=== PATIENT | female | born 2000 | race African-American/Black ===

== ENCOUNTER 2025-09-27 08:21 | Emergency (ER) | payer OTHER ==
[2025-09-27 08:54] LABS: Absolute Lymphocytes (CBC) 2.5 K/uL (0.7-4.9); Hematocrit 37.2 % (36.0-45.0); Hemoglobin 12.4 g/dL (12.0-15.0); MCH 30.8 pg (27.0-35.0); MCHC 33.3 g/dL (32.0-36.0); MCV 92.3 fL (80-100); MPV 8.1 fL (7.6-11.3); Nucleated RBC Absolute Count 0.0 (0-0); Nucleated Red Blood Cells % 0.0 % (0-0); RBC Red Blood Cell Count 4.03 M/uL (3.86-4.86); White Blood Count 11.30 thou/uL (4.3-10.9)
[2025-09-27 09:22] LABS: Sqamous Epithelial <5 /HPF (None Seen); Urine Crystals Unidentified Few /HPF (None Seen); Urine Culture Reflex Order NOT NEEDED; Urine Microscopic Reflex YN ORDER UMIC
--- NOTE | 2025-09-27 09:46 | RAD REPORT ---
EXAM: 1St Trimest Single 1St Fetus HISTORY: VAGINAL BLEEDING COMPARISON: None TECHNIQUE: Multiple grayscale and color Doppler images were obtained in a transvaginal pelvic ultraso und. Spectral analysis of the Doppler waveforms of the ovaries were performed. FINDINGS: UTERUS: There is an intrauterine gestational sac. [place]-rump length: 5.2 cm which estimates gestational age at 11 weeks 6 day. A heart rate is detected at 160 bpm. No evidence of subchorionic hemorrhage. No free fluid is seen in the pelvis. RIGHT OVARY: Not visualized, possibly obscured by bowel gas. LEFT OVARY: Not visualized, possibly obscured by bowel gas. IMPRESSION: Single live IUP with positive heart tones measuring 11 weeks 6 days.
[2025-09-27 09:50] LABS: Anion Gap 9.6 mEq/L (5.0-15.0); BUN Blood Urea Nitrogen 8.0 mg/dL (7-18); Glucose Level 88.0 mg/dL (74-106); HCG, Quantitative 27388.0 mIU/mL (1-3); Potassium 3.6 mEq/L (3.5-5.1)
--- NOTE | 2025-09-27 10:00 | EDPHYS ---
Physician Documentation [facility] Name: Ryanne Hare Age: 25 yrs Sex: Female : 2000 Arrival Date: 09/27/2025 Time: 08:21 Bed 17 Private MD: ED Physician Bird Read HPI: 09/27 08:31 This 25 yrs old Black Female presents to ER via Unassigned with complaints of Vaginal dr5 Bleeding, + Preg <12wks. 08:31 The patient presents to the emergency department with vaginal bleeding, that is light, dr5 with no clots. The estimated gestational age is 11 weeks. Patient is a 25-year-old female with no past medical history coming in with 3 days of generalized abdominal cramping and slight vaginal bleeding that she noticed when she wipes that started yesterday. Patient reports abdominal cramping that started this morning that has relieved. Patient has no past medical history and no surgical history. Patient has ultrasound scheduled with OB on October 09 of next month. 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 - Social history:: Smoking status: Patient denies any tobacco usage or history of. ROS: 08:31 Constitutional: as per hpi dr5 Exam: 08:31 Constitutional: This is a well developed, well nourished patient who is awake, alert, dr5 and in no acute distress. Head/Face: Normocephalic, atraumatic. Eyes: Pupils equal round and reactive to light, extra-ocular motions intact. Lids and lashes normal. Conjunctiva and sclera are non-icteric and not injected. Cornea within normal limits. Periorbital areas with no swelling, redness, or edema. Neck: Trachea midline, no thyromegaly or masses palpated, and no cervical lymphadenopathy. Supple, full range of motion without nuchal rigidity, or vertebral point tenderness. No Meningismus. Chest/axilla: Normal chest wall appearance and motion. Nontender with no deformity. No lesions are appreciated. Cardiovascular: Regular rate and rhythm with a normal S1 and S2. Normal PMI, no JVD. No pulse deficits. Respiratory: Lungs have equal breath sounds bilaterally, clear to auscultation. No rales, rhonchi or wheezes noted. No increased work of breathing, no retractions or nasal flaring. Abdomen/GI: Soft, non-tender, non-distended Back: No spinal tenderness. No costovertebral tenderness. Full range of motion. Skin: Warm, dry with normal turgor. Normal color with no rashes, no lesions, and no evidence of cellulitis. MS/ Extremity: Pulses equal, no cyanosis. Neurovascular intact. Full, normal range of motion. Neuro: Awake and alert, GCS 15, oriented to person, place, time, and situation. Cranial nerves II-XII grossly intact. Motor strength 5/5 in all extremities. Sensory grossly intact. Cerebellar exam normal. Normal gait. Vital Signs: 08:30 BP 140 / 85; Pulse 95; Resp 17; Temp 97.4; Pulse Ox 99% on R/A; Weight 95.25 kg; Height ll1 5 ft. 6 in. ; Pain 5/10; 09:00 BP 108 / 63; Pulse 87; Resp 18; Pulse Ox 100% on R/A; Pain 4/10; ar8 09:30 BP 100 / 63; Pulse 85; Resp 18; Pulse Ox 98% on R/A; ar8 08:30 Body Mass Index 33.89 (95.25 kg, 167.64 cm) ll1 08:30 Pain Scale: Adult ll1 09:00 Pain Scale: Adult ar8 MDM: 08:24 Medical Screening Exam initiated dr5 08:31 Differential diagnosis: threatened Ab, inevitable Ab, complete Ab, retained Ab, septic dr5 Ab. 09:51 Data reviewed: vital signs, nurses notes, lab test result(s), Beta HCG: CBC, white dr5 blood cell count, hemoglobin, hematocrit, platelets, electrolytes, sodium, potassium, chloride, serum bicarbonate, BUN, creatinine, serum glucose, urinalysis, UPT: positive radiologic studies, ultrasound. Consideration of Admission/Observation Escalation of care including admission/observation considered. Escalation considered patient found to have ectopic . I considered the following discharge prescriptions or medication management in the emergency department I discussed and recommended Over The Counter medications. Historians other than the Patient: Spouse/Significant Other: Significant other. Care significantly affected by the following Social Determinants of Health: Poor access to healthcare and/or lack of insurance, Poor access to transportation, Problems related to employment. Counseling: I had a detailed discussion with the patient and/or guardian regarding the historical points, exam findings, and any diagnostic results supporting the discharge/admit diagnosis, the presence of at least one elevated blood pressure reading (>120/80) during this emergency department visit, lab results, radiology results, the need for outpatient follow up, for definitive care, an OB/Gyne specialist, to return to the emergency department if symptoms worsen or persist or if there are any questions or concerns that arise at home. Special discussion: I discussed with the patient/guardian in detail that at this point there is no indication for admission to the hospital. It is understood, however, that if the symptoms persist or worsen the patient needs to return immediately for re-evaluation. Based on the history and exam findings, there is no indication for further emergent testing or inpatient evaluation. I discussed with the patient/guardian the need to see the OB Gyne specialist for further evaluation of the symptoms. ED course: All results discussed with patient and printed for her to take with her. All questions answered. Patient is O+. STRICT ER precautions given.. 09/27 08:31 Order name: Abo/rh Typing; Complete Time: 09:54 dr5 09/27 08:31 Order name: Basic Metabolic Panel; Complete Time: 09:51 dr5 09/27 08:31 Order name: CBC with Diff; Complete Time: 08:57 dr5 09/27 08:31 Order name: Test, Urine; Complete Time: 09:28 dr5 09/27 08:31 Order name: Quantitative Hcg; Complete Time: 09:51 dr5 09/27 08:31 Order name: UA Rfx Joey Cult if indicated; Complete Time: 09:28 dr5 09/27 09:29 Order name: 1St Trimest Single 1St Fetus; Complete Time: 09:49 EDMS 09/27 08:31 Order name: IV Saline Lock; Complete Time: 08:42 dr5 09/27 08: Order name: Labs collected and sent; Complete Time: 08:42 dr5 09/27 08:31 Order name: NPO; Complete Time: 08:42 dr5 Administered Medications: No medications were administered Disposition: 13:44 Co-signature as Attending Physician, Bird Read MD I reviewed the patient's care rn provided by the Advanced Practice Provider and agree with the diagnosis and treatment plan. Disposition Summary: 09/27/25 10:00 Discharge Ordered Notes: Location: Home dr5 Condition: Stable dr5 Diagnosis - Abnormal uterine and vaginal bleeding, unspecified dr5 - 11 weeks gestation of dr5 Followup: dr5 - With: Emergency Department - When: As needed - Reason: Worsening of condition Followup: dr5 - With: Private Physician - When: 1 week - Reason: Recheck today's complaints, Continuance of care, Re-evaluation by your physician Discharge Instructions: - Discharge Summary Sheet dr5 - Vaginal Bleeding During , First Trimester dr5 Forms: - Work release form dr5 - Medication Reconciliation Form dr5 - Patient Portal Instructions dr5 - Leadership Thank You Letter dr5 Signatures: Dispatcher [employer] Bird Dover MD MD rn Lewis, Lynsay, RN RN ll1 Tal Fountain, PERCH MENDER-C PERCH MENDER-Cdr5 Corrections: (The following items were deleted from the chart) 09:29 08:31 Transvaginal Ob+US.RAD.BRZ ordered. [facility] 10:00 09:51 ED course: All results discussed with patient and printed for her to take with dr5 her. All questions answered.. dr5
--- NOTE | 2025-09-27 10:00 | ER ---
Nurse's Notes [facility] Name: Ryanne Hare Age: 25 yrs Sex: Female : 2000 Arrival Date: 09/27/2025 Time: 08:21 Bed 17 Private MD: Diagnosis: Abnormal uterine and vaginal bleeding, unspecified;11 weeks gestation of Presentation: 09/27 08:30 Chief complaint: Patient states: Abdominal cramping for 3 days. Spotting for 2 days. ll1 G4, P3 Around 11 weeks . Coronavirus screen: Client denies travel out of the [place] in the last 14 days. At this time, the client does not indicate any symptoms associated with coronavirus-19. Ebola Screen: Patient denies travel to an Ebola-affected area in the 21 days before illness onset. Initial Sepsis Screen: Does the patient meet any 2 criteria? No. Patient's initial sepsis screen is negative. Does the patient have a suspected source of infection? No. Patient's initial sepsis screen is negative. Risk Assessment: Do you want to hurt yourself or someone else? Patient reports no desire to harm self or others. Onset of symptoms was September 25, 2025. 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 - Social history:: Smoking status: Patient denies any tobacco usage or history of. Screenin:34 [facility] ED Fall Risk Assessment (Adult) History of falling in the last 3 months, ar8 including since admission No falls in past 3 months (0 pts) Confusion or Disorientation No (0 pts) Intoxicated or Sedated No (0 pts) Impaired Gait No (0 pts) Mobility Assist Device Used No (0 pt) Altered Elimination No (0 pt) Score/Fall Risk Level 0 - 2 = Low Risk Oriented to surroundings, Maintained a safe environment. Abuse screen: Denies threats or abuse. Nutritional screening: No deficits noted. Tuberculosis screening: No symptoms or risk factors identified. Assessment: 08:44 General: Appears uncomfortable, Behavior is cooperative, crying. Pain: Complains of ar8 pain in right lower quadrant and left lower quadrant Quality of pain is described as crampy. Neuro: Level of Consciousness is awake, alert, obeys commands, Oriented to person, place, time, situation. Cardiovascular: Patient's skin is warm and dry. Respiratory: Airway is patent Respiratory effort is even, unlabored, Respiratory pattern is regular, symmetrical. GI: Reports lower abdominal pain, cramping. : Reports vaginal bleeding that is spotty. Vital Signs: 08:30 BP 140 / 85; Pulse 95; Resp 17; Temp 97.4; Pulse Ox 99% on R/A; Weight 95.25 kg; Height ll1 5 ft. 6 in. ; Pain 5/10; 09:00 BP 108 / 63; Pulse 87; Resp 18; Pulse Ox 100% on R/A; Pain 4/10; ar8 09:30 BP 100 / 63; Pulse 85; Resp 18; Pulse Ox 98% on R/A; ar8 08:30 Body Mass Index 33.89 (95.25 kg, 167.64 cm) ll1 08:30 Pain Scale: Adult ll1 09:00 Pain Scale: Adult ar8 ED Course: 08:23 Patient arrived in ED. cj3 08:24 Tal Fountain [facility]C [facility]5 08:24 Bird Read MD is Attending Physician. dr5 08:24 Peter Gillis, IKE is Primary Nurse. ar8 08:24 Arm band placed on Patient placed in an exam room, on a stretcher. ll1 08:34 Triage completed. ll1 08:34 Bed in low position. Call light in reach. Side rails up X2. Placed in gown. Provided ar8 Education on: plan of care, diagnostics and estimated wait time. Pulse ox on. NIBP on. Warm blanket given. 08:39 No provider procedures requiring assistance completed. Inserted saline lock: 20 gauge ar8 in right antecubital area, using aseptic technique. Blood collected. Flushed with 10 mL NS. 09:07 Test, Urine Sent. ar8 09:09 UA Rfx Joey Cult if indicated Sent. ar8 09:29 1St Trimest Single 1St Fetus In Process Unspecified. EDMS 10:07 IV discontinued, intact, bleeding controlled, No redness/swelling at site. Pressure ar8 dressing applied. Administered Medications: No medications were administered Medication: 08:34 VIS not applicable for this client. ar8 Outcome: 10:00 Discharge ordered by . maximino 10:07 Discharged to home ambulatory, ar8 10:07 Condition: stable 10:07 Discharge instructions given to patient, significant other, Instructed on discharge instructions, follow up and referral plans. Demonstrated understanding of instructions, follow-up care, 10:07 Patient left the ED. ar8 Signatures: Dispatcher [employer] EDMily Burr, RN RN ll1 Tal Fountain, LOADER-C LOADER-Cdr5 Zoey Santos cj3 Peter Gillis, RN RN ar8
[2025-09-27 10:12] VITALS: TEMP 97.4
[2025-09-27 10:14] VITALS: BP 100/63; O2SAT 98
== END 2025-09-27 10:07 | disposition home or self-care (01) ==
LOC: ER 08:21
DX: O20.9 Hemorrhage in early pregnancy, unspecified (principal); Z3A.11 11 weeks gestation of pregnancy
CPT/HCPCS: 36415; 76801; 80048; 81001; 81025; 84702; 85025; 86900; 86901; 99284